=== PATIENT | female | born 1950 | race Caucasian/White ===

== ENCOUNTER 2025-07-21 10:26 | Outpatient (CLI) | payer MEDICARE, BC ==
[2025-07-21] MEDS ORDERED: Iopamidol 300 61% 100 ML VIAL FS ONE (10:40)
[2025-07-21 12:50] LABS: Estimated GFR - POC 67.0
== END 2025-07-21 12:00 | disposition home or self-care (01) ==
LOC: CSHCT 10:26
PROVIDERS: ATTEND Physician Assistant Medical
DX: R10.31 Right lower quadrant pain (principal); K63.89 Other specified diseases of intestine; K76.0 Fatty (change of) liver, not elsewhere classified; K76.89 Other specified diseases of liver; K57.30 Diverticulosis of large intestine without perforation or abscess without bleeding
CPT/HCPCS: 36415; 74177; 82565 ×2; Q9967